=== PATIENT | female | born 1975 | race Two or more races ===

== ENCOUNTER → 2024-11-29 | Outpatient (CLI) | payer MEDICAID, SELFPAY ==
--- NOTE | 2024-11-29 14:30 | XR_ITS ---
Examination: Pelvic ultrasound, transabdominal, complete Technique: Transabdominal ultrasound of the pelvis performed using grayscale imaging Date and time of exam: November 29, 2024 1421 hours INDICATIONS: Heavy irregular menses 6 months FINDINGS: Uterus 9.4 x 4.7 x 5.9 cm No uterine mass or intrauterine gestation Endometrial stripe 11 mm Right ovary 2.4 x 1.2 x 2.8 cm arterial flow Left ovary 3.5 x 2.3 x 3.2 cm arterial flow 12 x 12 mm follicular cyst No fluid in the cul-de-sac IMPRESSION: No uterine mass or intrauterine gestation
== END | disposition home or self-care (01) ==
PROVIDERS: PCP Nurse Practitioner Family; Referring Provider Nurse Practitioner Women's Health; Visit Provider Nurse Practitioner Women's Health
DX: R10.2 Pelvic and perineal pain (principal)
CPT/HCPCS: 76856